=== PATIENT | male | born 1960 | race Caucasian/White ===

== ENCOUNTER 2018-06-19 15:40 | Emergency (ER) | payer MEDICARE, MEDICAID ==
[~2018-06-19] VITALS: Ht 190.5 cm; Wt 199.6 kg
[2018-06-19] MEDS ORDERED: SODIUM CHLORIDE 0.9% 1,000 ML IV ONE (17:43)
[2018-06-19] MEDS ORDERED: MORPHINE SULFATE 4 MG/ML SYR/VIAL IV ONE (17:45)
[2018-06-19 18:48] LABS: Basophils # (auto) 0.1 uL; Basophils % (auto) 0.5 % (0.0-2.0); Eosinophils # (auto) 0.1 uL; Eosinophils % (auto) 0.9 % (0.0-7.0); Hematocrit 47.5 % (41.0-53.0); Hemoglobin 16.3 g/dL (13.5-17.5); Lymphocytes # (auto) 2.1 uL; Lymphocytes % (auto) 18.9 % (10.0-50.0); Mean Corpuscular Hemoglobin 34.8 pg (28.0-32.0); Mean Corpuscular Hgb Conc. 34.3 g/dL (32.0-36.0); Mean Corpuscular Volume 101.5 fL (80.0-100.0); Monocytes # (auto) 0.9 uL; Neutrophils # (auto) 8.2 uL; Neutrophils % (auto) 71.7 % (37.0-80.0); Platelet Count (auto) 268 10^3/uL (140-450); Red Blood Cells 4.68 10^6/uL (4.5-5.90); Red Cell Distribution Width 14.5 % (11.8-14.3); White Blood Cell 11.4 10^3/uL (4.4-10.8)
[2018-06-19 19:06] LABS: Albumin 3.5 g/dL (3.4-5.0); Anion Gap 13 (5-15); Calcium 8.4 mg/dL (8.5-10.1); Carbon Dioxide 23 mmol/L (21-32); Chloride 103 mmol/L (98-107); Glucose 96 mg/dL (74-106); Potassium 4.1 mmol/L (3.5-5.1); Sodium 139 mmol/L (136-145)
[2018-06-19 19:14] LABS: Alanine Aminotransferase 41 U/L (16-61); Alkaline Phosphatase 92 U/L (45-117); Aspartate Aminotransferase 32 U/L (15-37); Bilirubin, Total 0.5 mg/dL (0.2-1.0); Blood Urea Nitrogen 15 mg/dL (7-18); GFR African American 99 mL/min; GFR Non-African American 82 mL/min; Total Protein 8.4 g/dL (6.4-8.2)
[2018-06-19 19:28] LABS: INR 1.01 (0.9-1.15); Partial Thromboplastin Time 29.8 sec (23.78-33.04); Prothrombin Time 10.8 sec (9.27-12.13)
[2018-06-19 20:49] VITALS: BP 136/99
== END 2018-06-19 22:26 | disposition home or self-care (01) ==
LOC: ER 15:53
DX: R51 Headache (principal); R47.81 Slurred speech; I10 Essential (primary) hypertension; M10.9 Gout, unspecified; W18.39XA Other fall on same level, initial encounter; Y93.89 Activity, other specified; Y99.8 Other external cause status; Y92.89 Other specified places as the place of occurrence of the external cause
CPT/HCPCS: 36415; 70450; 71045; 72125; 80053; 84484; 85025; 85610; 85730; 93005; 96374; 99285; J2270

== ENCOUNTER 2025-05-08 23:51 | Emergency (ER) | payer OTHER, MEDICAID ==
[~2025-05-08] VITALS: Ht 188 cm; Wt 164.0 kg
--- NOTE | 2025-05-09 00:40 | ED.PDOC ---
Musculoskeletal HPI Comments 64 year old male presents to the ED with a chief complaint of RT shoulder pain s/p fall onset 2 hours prior to ED arrival. Patient states he was drinking beer all day, had just drank double shot of vodka, when he slipped, tried to catch himself with RT arm, landed on RT arm. He is currently experiencing RT shoulder pain, states he "heard a pop." PMHx depression, Gout, HTN. Denies LOC, head injury, numbness/tingling, nausea, vomiting, chest pain. No other symptoms or modifying factors present at this time. Chief Complaint: Fall Injury Time Seen by MD: 00:30 Primary Care Provider: ZULLY Peralta Notes: Medications, Allergies Allergies: Coded Allergies: NO KNOWN ALLERGIES (Unverified , 05/13/14) Home Meds Active Scripts Gabapentin (Once-Daily) (Gabapentin) 300 Mg Tab, 300 MG PO Q6HP PRN, #30 TAB Prov:EHSAN MILLARD MD 05/09/25 Information Source: Patient Mode of Arrival: Ambulatory Location: Right Extremity Location: Shoulder Timing: Hours Prehospital treatment: None Severity: Moderate Able to Move Extremity: Yes Pain: Moderate Mechanism: Spontaneous Circumstances: Fall Onset of Symptoms: After Trauma Symptoms: Pain DVT Risk Factors: NONE Associated signs and symptoms: Shoulder pain Past Medical History PAST MEDICAL HISTORY: Depression, Gout, HTN Surgical History: Denies all surgeries Family History Family History: Unknown Social History Smoker: Non-Smoker Alcohol: Heavy Drugs: Denies Drug Use Lives In: Home Constitutional: denies: chills, diaphoresis, fatigue, fever, malaise, sweats, weakness, others EENTM: denies: blurred vision, double vision, ear bleeding, ear discharge, ear drainage, ear pain, ear ringing, eye pain, eye redness, hearing loss, mouth pain , mouth swelling, nasal discharge, nose bleeding, nose congestion, nose pain, photophobia, tearing, throat pain, throat swelling, voice changes, others Respiratory: denies: cough, hemoptysis, orthopnea, SOB at rest, shortness of breath, SOB with excertion, stridor, wheezing, others Cardiovascular: denies: chest pain, dizzy spells, diaphoresis, Dyspnea on exertion, edema, irregular heart beat, left arm pain, lightheadedness, palpitations, PND, syncope, others Gastrointestinal: denies: abdomen distended, abdominal pain, blood streaked bowels, constipated, diarrhea, dysphagia, difficulty swallowing, hematemesis, melena, nausea, poor appetite, poor fluid intake, rectal bleeding, rectal pain, vomiting, others Genitourinary: denies: burning, dysuria, flank pain, frequency, hematuria, incontinence, penile discharge, penile sore, pain, testicle pain, testicle swelling, urgency, others Neurological: denies: dizziness, fainting, headache, left sided numbness, left sided weakness, numbness, paresthesia, pre-existing deficit, right sided numbness, right sided weakness, seizure, speech problems, tingling, tremors, weakness, others Musculoskeletal: reports: others (RT shoulder pain); denies: back pain, gout, joint pain, joint swelling, muscle pain, muscle stiffness, neck pain Integumetry: denies: bruises, change in color, change in hair/nails, dryness, laceration, lesions, lumps, rash, wounds, others Allergic/Immunocompromised: denies: Difficulty Healing, Frequent Infections, Hives, Itching, others Hematologic/Lymphatic: denies: anemia, blood clots, easy bleeding, easy bruising, swollen glands, others Endocrine: denies: excessive hunger, excessive sweating, excessive thirst, excessive urination, flushing, intolerance to cold, intolerance to heat, unexplained weight gain, unexplained weight loss, others Psychiatric: denies: anxiety, bipolar disorder, depression, hopeless, panic disorder, schizophrenia, sleepless, suicidal, others All Other Systems: Reviewed and Negative Physical Exam General Appearance: Normal HEENT: Normal ENT Inspection, Pharynx Normal, TMs Normal Neck: Full Range of Motion, Non-Tender, Normal, Normal Inspection Respiratory: Chest Non-Tender, Lungs Clear, No Accessory Muscle Use, No Respiratory Distress, Normal Breath Sounds Cardiovascular: No Edema, No JVD, No Murmur, No Gallop, Normal Peripheral Pulses, Regular Rate/Rhythm Breast Exam: Deferred Gastrointestinal: No Organomegaly, Non Tender, No Pulsatile Mass, Normal Bowel Sounds, Soft Genitalia: Deferred Pelvic: Deferred Rectal: Deferred Extremities: No calf tenderness, Normal capillary refill, Normal inspection, Normal range of motion, Non-tender, No pedal edema Musculoskeletal : Apperance: Normal 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 Start Time 0300 Sedation End Time 0320 Complications: Monitored during Risks/benefits/alt described: Yes Reduction Indication: Dislocation Sedation: Consents obtained, Sedation as ordered, Intra-articular Intra-articular anesthetic lazara: No Nerve Block: Other (shoulder) Post-reduction x-ray show: Reduction Informed consent obtained: Yes Risks/benefits/alt described: Yes Differential Diagnosis EXT Differential Diagnosis: Cellulitis, CHF, Deep Vein Thrombosis, Compartment Syndrome, Septic, Neurovascular injury, Other X-Ray, Labs, Meds, VS Vital Signs Date Time Temp Pulse Resp B/P (MAP) Pulse Ox O2 Delivery O2 Flow Rate FiO2 05/09/25 04:20 91 22 94 Room Air* 0 21 05/09/25 03:37 90 10 93 2.0 90 12 95 91 98 05/09/25 02:55 97.9 84 24 128/82 (97) 94 97.9 05/08/25 23:52 98.1 82 18 129/76 96 98.1 Current Medications Medications (Trade) Dose Ordered Sig/Eva Route Start Time Stop Time Status Last Admin Ketamine HCl (Ketalar) 150 mg ONCE ONCE IV 05/09/25 00:45 05/09/25 00:46 DC 05/09/25 03:37 Propofol (Diprivan) 50 mg ONCE ONCE IV 05/09/25 00:45 05/09/25 00:46 DC 05/09/25 03:[address] [address] Ph: [phone] DIAGNOSTIC IMAGING Diagnostic Imaging Report : [id number] Signed PATIENT: SKY MARTE ACCT: [id number] UNIT: [id number] : 1960 LOC: ER ROOM / BED: / AGE / SEX: 64 / M ADM STATUS: REG ER SERVICE 0009 ORDERING PHYSICIAN: EHSAN MILLARD MD PROCEDURE(s): RSHD2 - R SHOULDER 2+ VIEW XRAY REASON: pain / fall ORDER NUMBER(s): [id number], ACCESSION NUMBER(s): [id number] CLINICAL INDICATION: pain / fall TECHNIQUE: XY R SHOULDER 2+ VIEW XRAY Comparison: None FINDINGS/IMPRESSION: : Inferior subluxation of the humeral head with respect to the glenoid process of the scapula. Small cortical fragment superolaterally adjacent to the humeral head may represent related fracture and sequelae of dislocation. Moderate degenerative change of the acromioclavicular joint. Visualized portions of the lungs are clear. Soft tissues are unremarkable. ATED BY: PATRIC SOTO MD DICTATED DATE/TIME: 05/09/2550 SIGNED BY: PATRIC SOTO MD SIGNED DATE/TIME: 05/09/2550 CC: [place] [id number] Ph: [phone] DIAGNOSTIC IMAGING Diagnostic Imaging Report : [id number] Signed PATIENT: SKY MARTE ACCT: [id number] UNIT: [id number] : 1960 LOC: ER ROOM / BED: / AGE / SEX: 64 / M ADM STATUS: REG ER SERVICE 0009 ORDERING PHYSICIAN: EHSAN MILLARD MD PROCEDURE(s): CXR1 - CHEST XRAY 1 VIEW REASON: pain / fall ORDER NUMBER(s): [id number], ACCESSION NUMBER(s): [id number] EXAM: XY CHEST XRAY 1 VIEW CLINICAL HISTORY: pain / fall TECHNIQUE: Single AP view of the chest WID: COMPARISON: None FINDINGS: Lines and tubes: None Chest: Mild cardiomegaly. No pulmonary vascular congestion. Calcified plaque projects over the aortic arch. No pleural effusion, pneumothorax, or consolidation. Linear scarring or atelectasis in the right lung base. The osseous structures are grossly intact. IMPRESSION: 1. Mild cardiomegaly. ATED BY: BRANDI MINA MD DICTATED DATE/TIME: 05/09/2546 SIGNED BY: BRANDI MINA MD SIGNED DATE/TIME: 05/09/2546 CC: Time of 1ST Reevaluation: 01:00 Reevaluation 1ST: Unchanged Patient Education/Counseling: Diagnosis, Treatment, Prognosis Family Education/Counseling: No Family Present Departure 1 Departure Time of Disposition: 03:00 Impression: Primary Impression: Dislocation, shoulder closed Disposition: HOME / SELF CARE / HOMELESS Condition: Stable e-Prescriptions Gabapentin (Once-Daily) (Gabapentin) 300 Mg Tab 300 MG PO Q6HP PRN, #30 TAB Prov: EHSAN MILLARD MD 05/09/25 Discharged With: Self Critical Care Note Critical Care Time?: No Stability Stability form required: No I personally scribed for EHSAN MILLARD MD ([email or web address]) on 05/09/25 at 00:40. Electronically submitted by Mary Lou Ritchie ([email or web address]). I personally scribed for EHSAN MILLARD MD ([email or web address]) on 05/09/25 at 02:04. Electronically submitted by Mary Lou Ritchie ([email or web address]). EHSAN MILLARD MD May 09, 2025 00:40
--- NOTE | 2025-05-09 00:50 | DVH ---
EXAM: XY CHEST XRAY 1 VIEW CLINICAL HISTORY: pain / fall TECHNIQUE: Single AP view of the chest WID: COMPARISON: None FINDINGS: Lines and tubes: None Chest: Mild cardiomegaly. No pulmonary vascular congestion. Calcified plaque projects over the aortic arch. No pleural effusion, pneumothorax, or consolidation. Linear scarring or atelectasis in the right lung base. The osseous structures are grossly intact. IMPRESSION: 1. Mild cardiomegaly.
--- NOTE | 2025-05-09 00:54 | DVH ---
CLINICAL INDICATION: pain / fall TECHNIQUE: XY R SHOULDER 2+ VIEW XRAY Comparison: None FINDINGS/IMPRESSION: : Inferior subluxation of the humeral head with respect to the glenoid process of the scapula. Small co rtical fragment superolaterally adjacent to the humeral head may represent related fracture and seque lae of dislocation. Moderate degenerative change of the acromioclavicular joint. Visualized portions of the lungs are clear. Soft tissues are unremarkable.
[2025-05-09] MEDS: PROPOFOL 10 MG/ML 20 ML IV ONE (03:37)
[2025-05-09] MEDS: KETAMINE 50mg/ML 10ml Vial (500mg/10ml) IV ONE (03:37)
[2025-05-09] MEDS ORDERED: GABA300T4 PO (03:51)
--- NOTE | 2025-05-09 04:08 | DVH ---
EXAM: XY R SHOULDER 1V XRAY HISTORY: POST REDUCTION COMPARISON: XY R SHOULDER 2+ VIEW XRAY on DOS: 05/09/25 TECHNIQUE: 2 views of the right shoulder were performed. FINDINGS: Successful reduction of the glenohumeral joint. Possible fracture of the glenoid. IMPRESSION: 1. Successful reduction of the glenohumeral joint. Fracture suspected, possibly of the glenoid.
[2025-05-09 04:20] VITALS: PULSE 91; RESP 22; O2SAT 94
[2025-05-09] MEDS: ONDANSETRON HCL 4 MG/2 ML VIAL IV ONE (04:51)
[2025-05-09] MEDS: MORPHINE SULFATE 4 MG/ML SYR/VIAL IV ONE (04:51)
[2025-05-09 05:16] VITALS: TEMP 98; O2SAT 93
[2025-05-09 05:27] VITALS: BP 127/74; PULSE 88; RESP 20
== END 2025-05-09 05:27 | disposition home or self-care (01) ==
LOC: ER 23:51
DX: S43.006A Unspecified dislocation of unspecified shoulder joint, initial encounter (principal); W01.0XXA Fall on same level from slipping, tripping and stumbling without subsequent striking against object, initial encounter; Y93.89 Activity, other specified; Y92.89 Other specified places as the place of occurrence of the external cause; Y99.8 Other external cause status
CPT/HCPCS: 23650; 71045; 73020; 73030; 96374; 96375; 99152; 99285; J2270; J2405; J2704